=== PATIENT | female | born 1990 | race Caucasian/White ===

== ENCOUNTER 2018-09-04 06:20 | Inpatient (IN) ==
[2018-09-04] MEDS ORDERED: Oxytocin 30 Units/500ml Premix 30 UNITS/500 ML BAG IV.SIG ONE ×2 (07:11→21:11)
[2018-09-04] MEDS ORDERED: Sod Chloride 0.9% Inj 1,000 ML IV.CONT PRN (07:11)
[2018-09-04] MEDS ORDERED: Sodium Chlor 0.9% Inj 500 ML IV.SIG PRN (07:11)
[2018-09-04] MEDS ORDERED: fentaNYL Citrate Inj 100 MCG/2 ML Ampul IV.PUSH PRN (07:11)
[2018-09-04] MEDS ORDERED: Naloxone Inj 0.4 MG/ML Vial IV.PUSH PRN ×2 (07:11→21:00)
[2018-09-04] MEDS ORDERED: Oxytocin 30 Units/500ml Premix 30 UNITS/500 ML BAG IV.CONT PRN (07:13)
[2018-09-04] MEDS ORDERED: Citric Acid/Sodium Citrate Liq 30 ML UDC PO SCH ×2 (07:15→19:45)
--- NOTE | 2018-09-04 07:20 | P.HPOB ---
Patient Name: Vee Raza Date of : 86 Patient Status: Emergency Emergency Provider: Rhoda,Edna Date: 09/04/18 07:13 Initialization Date: 09/04/18 07:13 History of Present Illness Primary Care Physician: Octaviano Sarkar Electrical/Instrument Technician Dr. Maryann Villalobos covering Chief Complaint: I broke my water at 4:47 AM History of Present Illness: 28-year-old at 39+ weeks complaining of spontaneous rupture of membranes. GBS negative Past OB history unremarkable Past CUSTOM DESIGNER denies Past medical history denies Allergies penicillin Weeks Gestation:: 39 Para: 0 : 1 Review of Systems All other systems reviewed negative except as stated in HPI PMFSH - Travel History Recent Travel in the [facility] Within the Last 8 Weeks: No Recent Travel Out of the Country Within the Last 8 Weeks: No Medications and Allergies Allergies Allergy/AdvReac Type Severity Reaction Status Date / Time penicillin G Allergy Flushing Verified 09/04/18 07:17 Exam Narrative: GENERAL: Well-nourished, well-developed patient. SKIN: Warm and dry. HEAD: Normocephalic and atraumatic. EYES: No scleral icterus. No injection or drainage. ENT: No nasal drainage noted. Mucous membranes pink. Airway patent. NECK: Supple, trachea midline. No JVD. CARDIOVASCULAR: Regular rate and rhythm without murmurs, gallops, or rubs. RESPIRATORY: Breath sounds equal bilaterally. No accessory muscle use. BREASTS: Bilateral exam showed no masses , no retractions, no nipple discharge. ABDOMEN/GI: Abdomen soft, non-tender, bowel sounds present, no rebound, no guarding Gravid to 39 weeks size Fundal Height: 39 GENITOURINARY: External Genitalia: intact and normal in appearance BUS glands: Unremarkable Cervix: Soft Dilatation: 1-2 Effacement: 90% Station: 0 Presentation: Vertex Membranes: Ruptured Uterine Contractions: Minimal FHT's: Category: 1 Variability: Present EXTREMITIES: No cyanosis or edema. BACK: Nontender without obvious deformity. No CVA tenderness. NEUROLOGICAL: Awake and alert. Motor and sensory grossly within normal limits. Five out of 5 muscle strength in all muscle groups. Normal speech. Assessment and Plan - Diagnosis (1) Spontaneous rupture of membranes Status: Acute (2) 39 weeks gestation of Code(s): Z3A.39 - 39 weeks gestation of Status: Acute - Plan Admit discussed with Dr. Villalobos plan oxytocin
[2018-09-04 08:11] LABS: Baso % (Auto) 0.3 % (0.0-2.0); Eos # (Auto) 0.1 th/mm3 (0.0-0.4); Eos % (Auto) 1.1 % (0.0-4.0); Hematocrit 37.5 % (35.0-46.0); Hemoglobin 13.6 gm/dL (11.6-15.3); Lymph # (Auto) 2.4 th/mm3 (1.0-4.8); Lymph % (Auto) 21.7 % (9.0-44.0); Mean Corpuscular Hemoglobin 33.6 pg (27.0-34.0); Mean Corpuscular Volume 92.9 fL (80.0-100.0); Mean Platelet Volume 9.2 fL (7.0-11.0); Mono # (Auto) 0.7 th/mm3 (0.0-0.9); Mono % (Auto) 5.8 % (0.0-8.0); Neut % (Auto) 71.1 % (16.0-70.0); Platelet Count 157 th/mm3 (150-450); Red Blood Count 4.04 mil/mm3 (4.00-5.30); Red Cell Distribution Width 13.1 % (11.6-17.2); White Blood Count 11.3 th/mm3 (4.0-11.0)
[2018-09-04 08:17] LABS: Mean Corpuscular HGB Conc 36.1 % (32.0-36.0)
[2018-09-04] MEDS: fentaNYL Citrate Inj 100 MCG/2 ML Ampul IV.PUSH PRN ×2 (10:06→16:47)
[2018-09-04] MEDS ORDERED: fentaNYL 2MCG-Bupiv 0.125% Epi 150 ML EPIDURAL ONE (10:50)
[2018-09-04 10:55] LABS: Bacteria,Urine Moderate /hpf; Bilirubin,Urine Negative (Negative); Clarity,Urine Cloudy (Clear); Color,Urine Yellow (Yellw/Straw); Glucose,Urine (UA) Negative (Negative); Leukocyte Esterase,Urine Small (Negative); Nitrite,Urine Negative (Negative); Specific Gravity,Urine 1.006 (1.002-1.035); Squamous Epithelial Cell,Urine 40 /hpf (0-5)
[2018-09-04 11:14] LABS: Amphetamine Urine With Conf Neg (Neg); Benzodiazepine Urine With Conf Neg (Neg); Cannabinoid Urine With Conf Neg (Neg); Cocaine Urine With Conf Neg (Neg); Opiates Urine With Conf Neg (Neg)
[2018-09-04] MEDS ORDERED: fentaNYL 2MCG-Bupiv 0.125% Epi 150 ML EPIDURAL PRN (12:08)
[2018-09-04] MEDS ORDERED: fentaNYL Citrate Inj 100 MCG/2 ML Ampul EPIDURAL ONE (12:08)
--- NOTE | 2018-09-04 13:29 | P.OBLABOR ---
Subjective Interval history: doing well comfortable on epidural Objective Vital Signs: Vital Signs - 8 hr 09/04/18 07:03 09/04/18 08:04 09/04/18 08:15 Temperature 98.2 F Pulse Rate 86 91 H Respiratory Rate 20 Blood Pressure 140/82 137/80 09/04/18 09:02 09/04/18 09:57 09/04/18 10:01 Temperature Pulse Rate 114 H 87 96 H Respiratory Rate Blood Pressure 118/85 128/103 H 137/84 09/04/18 10:16 09/04/18 10:17 09/04/18 10:31 Temperature 98.5 F Pulse Rate 91 H 92 H Respiratory Rate Blood Pressure 136/81 133/79 09/04/18 11:01 09/04/18 11:22 09/04/18 11:35 Temperature Pulse Rate 89 91 H 100 H Respiratory Rate Blood Pressure 144/71 H 135/73 131/83 09/04/18 11:50 09/04/18 11:55 09/04/18 12:10 Temperature Pulse Rate 92 H 102 H 97 H Respiratory Rate Blood Pressure 116/60 115/72 09/04/18 12:16 09/04/18 12:30 09/04/18 12:31 Temperature 97.4 F L Pulse Rate 89 85 86 Respiratory Rate Blood Pressure 130/70 116/53 L 135/67 09/04/18 13:01 Temperature Pulse Rate 88 Respiratory Rate Blood Pressure 128/77 Objective: Pelvic Exam: Cervix: [-] Dilatation: [-] Effacement: [-] Station: [-] Presentation: [-] Membranes: [intact or ruptured] Uterine Contractions: [-] FHT's: Category: [-] Baseline: [-] Reactive: [-] Variability: [-] Decels: [-] Patient Started Active Labor: Yes Active Labor Start Date: 09/04/18 Active Labor Start Time: 07:00 Artificial Rupture of Membrane: No Assessment and Plan - Diagnosis (1) 39 weeks gestation of Code(s): Z3A.39 - 39 weeks gestation of Status: Acute
[2018-09-04] MEDS ORDERED: Morphine Sulfate PF Inj 5 MG/10 ML Ampul ONE (19:38)
[2018-09-04] MEDS ORDERED: ceFAZolin 2 GM Premix Inj 2 GM/50 ML PIGGYBACK IV.SIG SCH (19:41)
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
[2018-09-04] MEDS ORDERED: Simethicone 80 MG Chew Tablet PO PRN (21:11)
--- NOTE | 2018-09-04 21:15 | P.OBDELI ---
Procedure Note Performed by: Glenn Miguel MD Procedure: Primary Low Transverse Section, Other (cystotomy repair) Indication for Delivery: Other (arrest of descent) Informed Consent Obtained: For anesthesia, For procedure Confirmed Correct: Patient, Procedure, Time-out taken Anesthesia: Epidural Monitoring During Procedure: Blood pressure monitoring Urinary Catheter: Inserted using sterile technique, To dependent drainage Sterile Preparation: Duraprep Position: Supine with wedge to left side - Operative Features Skin Incision: Pfannenstiel Uterine Incision: Low transverse w/knife / blunt ext Membranes Ruptured: Previously Presentation: Occiput anterior Status of Infant: Viable Placenta Delivered: Intact Estimated blood loss (mL): 300
--- NOTE | 2018-09-04 22:17 | MP ---
cc: Glenn Miguel MD,Glenn Yoon MD DATE OF OPERATION: 09/04/2018 PROCEDURE PERFORMED: Primary low transverse section. It also included a cystotomy repair. PREOPERATIVE DIAGNOSIS: Arrest of dilatation at 10 cm, 0 station after 2 hours of pushing. POSTOPERATIVE DIAGNOSIS: Arrest of dilatation at 10 cm, 0 station after 2 hours of pushing, with incidental cystotomy. ESTIMATED BLOOD LOSS: 300 mL. COMPLICATIONS: None. ANESTHESIA: Epidural. FINDINGS: Live infant OP presentation. The patient had a bladder and peritoneum which were significantly scarred secondary to previous laparotomy. PROCEDURE IN DETAIL: After informed consent and discussion about indication for section, the patient was taken to the operating room where she was placed under epidural anesthesia. Once the epidural anesthesia was adequate, and a Bansal catheter was placed and was draining well with blood-tinged urine secondary to 2 hours of pushing, a vertical skin incision was carried sharply through the old scar about midway to the umbilicus. We made a suprapubic elliptical incision around her previous scar and carried that down just above the pubic bone; an elliptical removing an old scar from previous laparotomy. Once the scar was excised, we incised through the subcutaneous tissue with Bovie cautery until we reached the fascia. The fascia was opened with Valerio scissors. We extended the incision upward and downward using sharp dissection secondary to scar tissue. A Sam clamp was placed on the sides. Attempts multiple attempts to enter the peritoneum were difficult. We dissected all the way up to the umbilicus where we entered the peritoneum, although it was adherent to the anterior uterus and was difficult to dissect away. At this point, there was a small cystotomy, which we were not sure that it was a cystotomy. At this time, we knew we entered some cavity with mucosa. This was dissected downward until we could find a window in the lower uterine segment. Once a window was formed, a low transverse uterine incision was then made, carried sharply into the uterine cavity. Clear fluid was noted. The infant was direct OP. The incision was extended laterally using blunt traction upward and downward. A hand was placed in the uterus. The infant's head was brought to the incision and flexed. Using fundal pressure, the 's head delivered. Shoulders were delivered. The remaining portion away with fundal pressure. The remained on the mom's thighs for 45 seconds, crying as we dried the baby. Once the baby was dry, a 45-second delayed cord clamping was obtained. We clamped and cut the cord handed the baby to pediatrics. At this point, we noticed that the Bansal bulb was able to be pulled up to the rent where the mucosa had been opened. It was about a 4 cm rent. The placenta was then delivered. The uterine incision was free of this scarred bladder. We closed the uterine incision in a running locking stitch of 0 chromic suture. Good hemostasis was achieved. Our attention was then turned to the bladder. At this point, I called for Dr. Charly Tompkins the OB hospitalist to assist with the closure of the bladder. We closed it in 2 layers using 3-0 chromic suture. We imbricated the mucosa of the bladder and the muscularis, closing the bladder with a running stitch to close the bladder mucosa. Once the bladder mucosa was completely approximated and both angles were held by a tag, we then oversewed the serosa over this, imbricating this incision and protecting it and taking pressure off that suture line. We carefully closed the serosa back over this defect with 2-0 Vicryl suture in a running stitch. It was completely imbricated. Good closure was noted. Sterile milk was then placed in the bladder. We pushed the sterile milk in and distended the bladder with over 60 mL of sterile milk. The bladder distended well and there was no leakage of any sterile milk from any suture line or from any other rents in the bladder. Satisfied with our closure. The bladder was once again drained, did not drain well, the Bansal bulb was readjusted and it drained better at that point. The defect was in the dome of the bladder at the very apex. This was easily closed, and good closure was noted. The perineum was then closed with 2-0 Vicryl suture. The fascia was closed with 0 Vicryl suture in a running stitch in a vertical fashion without difficulty. At this point, subcutaneous tissue was brought back together. There was about a 1.5 cm area that had been removed at the skin, so the subcutaneous tissue was brought together to take pressure off our 4-0 Monocryl. 4-0 Monocryl was used to close the skin. Steri-Strips were also applied because that skin was put under some pressure. The abdominal binder would also be used. The patient, the skin was closed completely with a 4-0 Monocryl on a Burton needle. Good closure was noted before the Steri-Strips were applied. The patient tolerated the procedure well. Lap and instrument counts were reported as correct. The went to the nursery. The patient was instructed about the cystotomy. Her was also instructed about cystotomy and that would recommend bladder drainage for 2 weeks with a Bansal catheter. The patient tolerated this procedure well. Lap and instrument count was reported as correct. The patient was in stable condition when she was brought to the recovery room to reunite with her infant. MD MARY Serrano/ofelia , 09:23 PM , 09:36 PM
[2018-09-05] MEDS ORDERED: Oxytocin 30 Units/500ml Premix 30 UNITS/500 ML BAG IV.SIG PRN (02:11)
[2018-09-05] MEDS: ceFAZolin Inj 2,000 MG in Sodium Chlor 0.9% Inj 80 ML IV.SIG SCH ×2 (04:03→12:10)
[2018-09-05 05:52] LABS: Baso % (Auto) 0.2 % (0.0-2.0); Hematocrit 33.5 % (35.0-46.0); Hemoglobin 11.7 gm/dL (11.6-15.3); Lymph # (Auto) 1.1 th/mm3 (1.0-4.8); Lymph % (Auto) 5.3 % (9.0-44.0); Mean Corpuscular Hemoglobin 32.8 pg (27.0-34.0); Mean Corpuscular Volume 93.9 fL (80.0-100.0); Mean Platelet Volume 9.1 fL (7.0-11.0); Mono # (Auto) 0.9 th/mm3 (0.0-0.9); Neut # (Auto) 19.3 th/mm3 (1.8-7.7); Neut % (Auto) 90.5 % (16.0-70.0); Platelet Count 145 th/mm3 (150-450); Red Blood Count 3.57 mil/mm3 (4.00-5.30); White Blood Count 21.3 th/mm3 (4.0-11.0)
--- NOTE | 2018-09-05 08:34 | P.PNOB ---
Subjective Post day: 1 Interval history: doing well doing well urine clear, Objective Vital Signs/I&O: Vital Signs 09/04/18 09:02 09/04/18 09:57 09/04/18 10:01 Temperature Pulse Rate 114 H 87 96 H Respiratory Rate Blood Pressure 118/85 128/103 H 137/84 09/04/18 10:16 09/04/18 10:17 09/04/18 10:31 Temperature 98.5 F Pulse Rate 91 H 92 H Respiratory Rate Blood Pressure 136/81 133/79 09/04/18 11:01 09/04/18 11:22 09/04/18 11:35 Temperature Pulse Rate 89 91 H 100 H Respiratory Rate Blood Pressure 144/71 H 135/73 131/83 09/04/18 11:50 09/04/18 11:55 09/04/18 12:10 Temperature Pulse Rate 92 H 102 H 97 H Respiratory Rate Blood Pressure 116/60 115/72 09/04/18 12:16 09/04/18 12:30 09/04/18 12:31 Temperature 97.4 F L Pulse Rate 89 85 86 Respiratory Rate Blood Pressure 130/70 116/53 L 135/67 09/04/18 13:01 09/04/18 13:31 09/04/18 13:46 Temperature Pulse Rate 88 97 H 95 H Respiratory Rate Blood Pressure 128/77 134/78 100/63 09/04/18 14:00 09/04/18 14:15 09/04/18 14:46 Temperature 98.7 F Pulse Rate 97 H 102 H 104 H Respiratory Rate Blood Pressure 124/75 136/80 119/69 09/04/18 15:01 09/04/18 15:28 09/04/18 15:31 Temperature Pulse Rate 111 H 109 H 101 H Respiratory Rate 18 Blood Pressure 140/71 130/73 126/71 09/04/18 16:31 09/04/18 16:58 09/04/18 17:46 Temperature 99.2 F Pulse Rate 103 H 101 H 102 H Respiratory Rate 18 Blood Pressure 142/82 H 133/82 138/74 09/04/18 19:10 09/04/18 19:30 09/04/18 21:13 Temperature 99.4 F 97.8 F Pulse Rate 95 H 91 H 84 Respiratory Rate 16 16 Blood Pressure 102/71 109/55 L 09/04/18 21:39 09/04/18 21:54 09/04/18 22:10 Temperature Pulse Rate 89 89 83 Respiratory Rate 16 16 16 Blood Pressure 103/58 L 116/57 L 130/61 09/04/18 22:30 09/05/18 03:00 Temperature 98.3 F 98.4 F Pulse Rate 84 71 Respiratory Rate 18 18 Blood Pressure 129/67 143/86 H Intake & Output 09/04/18 09/05/18 09/05/18 18:59 06:59 18:59 Intake Total 1000 / 1000 Balance 1000 / 1000 Weight 100.698 kg Intake: IV 1000 / 1000 LR 1000 mL Inj 1,000 ML @ 125 1000 / 1000 mls/hr IV.CONT .Q8H [facility] Rx#: [id number] Other: Weight On Admission 100.698 kg Result Diagrams: 09/05/18 05:34 Objective Remarks: GENERAL: Well-nourished, well-developed patient. ABDOMEN/GI: Abdomen soft, non-tender. Fundus: Firm, non-tender at umbilicus. GENITOURINARY: Light to moderate bleeding. EXTREMITIES: No cyanosis or edema, non-tender, without signs of DVT. Medications and IVs: Active Medications Citric Acid/Sodium Citrate (Sodium Citrate/Citric Acid Liq) 30 ml PO REFINING EQUIPMENT OPERATOR [facility] Stop: 09/08/18 07:14 Citric Acid/Sodium Citrate (Sodium Citrate/Citric Acid Liq) 30 ml PO REFINING EQUIPMENT OPERATOR [facility] Stop: 09/08/18 19:44 Diphenhydramine HCl (Benadryl Inj) 25 mg IV.PUSH Q6H PRN PRN Reason: MILD TO MODERATE ITCHING Stop: 09/05/18 20:59 Diphenhydramine HCl (Benadryl) 50 mg PO Q6H PRN PRN Reason: MILD TO MODERATE ITCHING Stop: 09/05/18 20:59 Diphtheria/Pertussis/Tetanus Vacc (Boostrix Vaccine Inj) 0.5 ml IM .ONCE ONE Stop: 09/05/18 16:01 Ephedrine Sulfate (Ephedrine/Ns Syringe) 10 mg IV.PUSH UNSCH PRN PRN Reason: SEE LABEL COMMENTS Stop: 09/05/18 12:08 Fentanyl Citrate (Fentanyl Inj) 50 mcg IV.PUSH Q1H PRN PRN Reason: Pain Scale 3 - 5 Fentanyl Citrate (Fentanyl Inj) 100 mcg IV.PUSH Q1H PRN PRN Reason: PAIN SCALE 6 TO 10 Last Admin: 09/04/18 16:47 Dose: 100 mcg Lactated Ringer's (Lr 1000 Ml Inj) 1,000 mls @ 3,000 mls/hr IV.SIG UNSCH PRN PRN Reason: compromise or epidural Sodium Chloride (Ns Inj) 500 mls @ 1,000 mls/hr IV.SIG UNSCH PRN PRN Reason: SEE LABEL COMMENTS Sodium Chloride (Ns Inj) 1,000 mls @ 100 mls/hr IV.CONT .Q10H PRN PRN Reason: SEE LABEL COMMENTS Oxytocin (Pitocin 30 Units/Ns 500 Ml Premix) 30 units in 500 mls @ 2 mls/hr IV.CONT TITRATE PRN; Protocol PRN Reason: For induction of labor Last Admin: 09/04/18 08:31 Dose: 2 milliunit/min, 2 mls/hr Fentanyl/Bupivacaine/Sodium Chlor (Fentanyl 2 Mcg-Bupiv 0.125% Epi) 150 mls @ 10 mls/hr EPIDURAL PRN PRN PRN Reason: for Labor Pain Last Admin: 09/04/18 16:49 Dose: 10 mls/hr Cefazolin Sodium/Dextrose (Ancef 2 Gm Premix Inj) 2 gm in 50 mls @ 100 mls/hr IV.SIG REFINING EQUIPMENT OPERATOR [facility] Stop: 09/08/18 19:40 Lactated Ringer's (Lr 1000 Ml Inj) 1,000 mls @ 150 mls/hr IV.CONT .Q6H40M [facility] Cefazolin Sodium 2,000 mg/ (Sodium Chloride) 100 mls @ 200 mls/hr IV.SIG Q8H [facility] Stop: 09/05/18 12:29 Last Admin: 09/05/18 04:03 Dose: 200 mls/hr Lactated Ringer's (Lr 1000 Ml Inj) 1,000 mls @ 100 mls/hr IV.CONT .Q10H [facility] Stop: 09/05/18 22:10 Last Admin: 09/05/18 04:05 Dose: 100 mls/hr Oxytocin (Pitocin 30 Units/Ns 500 Ml Premix) 30 units in 500 mls @ 100 mls/hr IV.SIG PRN PRN PRN Reason: Heavy bleeding Stop: 09/06/18 02:10 Ibuprofen (Motrin) 600 mg PO Q6HR PRN PRN Reason: cramping Ketorolac Tromethamine (Toradol Inj) 30 mg IM Q6H PRN PRN Reason: SEE LABEL COMMENTS Stop: 09/09/18 21:10 Last Admin: 09/05/18 05:26 Dose: 30 mg Lidocaine HCl (Xylocaine 1% Inj) 0.1 ml I-DERMAL PRN PRN PRN Reason: For IV start Stop: 09/07/18 07:10 Lidocaine HCl (Xylocaine 1% Inj) 10 ml INFILTRATN PRN PRN PRN Reason: For episiotomy repair Stop: 09/06/18 07:10 Measles/Mumps/Rubella Vaccine Live (M-M-R Ii Vaccine Inj) 0.5 ml SQ .ONCE ONE Stop: 09/05/18 16:01 Mineral Oil (Muri-Lube Oil) 10 ml TOPICAL PRN PRN PRN Reason: PRN perineal massage Miscellaneous Information (Misc Information) 1 each OTHER UNSCH PRN PRN Reason: SEE LABEL COMMENTS Stop: 09/05/18 12:08 Miscellaneous Information (Misc Information) 1 each OTHER UNSCH PRN PRN Reason: SEE LABEL COMMENTS Stop: 09/05/18 12:08 Miscellaneous Information (Misc Nursing Information) 1 each OTHER UNSCH PRN PRN Reason: SEE LABEL COMMENTS Stop: 09/05/18 20:59 Miscellaneous Information (Misc Nursing Information) 1 each OTHER UNSCH PRN PRN Reason: SEE LABEL COMMENTS Stop: 09/05/18 20:59 Naloxone HCl (Narcan Inj) 0.1 mg IV.PUSH Q2M PRN PRN Reason: for opiate reversal Naloxone HCl (Narcan Inj) 0.4 mg IV.PUSH UNSCH PRN PRN Reason: SEE LABEL COMMENTS Stop: 09/05/18 20:59 Ondansetron HCl (Zofran Inj) 4 mg IV.PUSH Q6H PRN PRN Reason: NAUSEA OR VOMITING Last Admin: 09/05/18 03:08 Dose: 4 mg Oxycodone/Acetaminophen (Percocet 5/325 Mg) 1 tab PO Q4H PRN PRN Reason: PAIN SCALE 3 TO 5 Oxycodone/Acetaminophen (Percocet 5/325 Mg) 2 tab PO Q4H PRN PRN Reason: PAIN SCALE 6 TO 10 Senna/Docusate Sodium (Leyda-Colace) 2 tab PO Q12H PRN PRN Reason: CONSTIPATION Simethicone (Mylicon Chew) 80 mg PO QID PRN PRN Reason: FLATULENCE Sodium Chloride (Ns Flush) 2 ml IV.FLUSH BID [facility] Sodium Chloride (Ns Flush) 2 ml IV.FLUSH PRN PRN PRN Reason: FLUSH AFTER USING IV ACCESS Assessment and Plan - Diagnosis (1) 39 weeks gestation of Code(s): Z3A.39 - 39 weeks gestation of Status: Acute
[2018-09-05] MEDS: Senna/Docusate Sodium 8.6/50 MG Tablet PO PRN ×2 (14:11→22:01)
[2018-09-05] MEDS ORDERED: Measles/Mumps/Rubella Vaccine Inj 0.5 ML Vial SQ ONE (16:00)
[2018-09-05] MEDS ORDERED: Diphtheria/Tetanus/Pertussis Vaccine Inj 0.5 ML Syringe IM ONE (16:00)
[2018-09-05] MEDS: Ibuprofen 600 MG Tablet PO PRN (18:32)
[2018-09-06] MEDS: Ibuprofen 600 MG Tablet PO PRN ×2 (00:32→08:38)
[2018-09-06 09:18] VITALS: BP 119/81; PULSE 103; RESP 16; TEMP 98.9
--- NOTE | 2018-09-06 11:01 | P.PNOB ---
Subjective Post day: 2 Interval history: patient doing well pp. No complaints. She understands about her cystotomy and need for perdue for 2 weeks. Urine remains clear. she has pain managed with ibuprofen and percocet Objective Vital Signs/I&O: Vital Signs 09/05/18 13:00 09/05/18 20:00 09/06/18 08:30 Temperature 98.0 F 98.0 F 98.9 F Pulse Rate 111 H 100 H 103 H Respiratory Rate 16 Blood Pressure 100/56 L 106/69 119/81 Result Diagrams: 09/05/18 05:34 Objective Remarks: GENERAL: Well-nourished, well-developed patient. CARDIOVASCULAR: Regular rate and rhythm without murmurs, gallops, or rubs. RESPIRATORY: Breath sounds equal bilaterally. No accessory muscle use. ABDOMEN/GI: Abdomen soft, non-tender. Fundus: Firm, non-tender at umbilicus. GENITOURINARY: Light to moderate bleeding. EXTREMITIES: No cyanosis or edema, non-tender, without signs of DVT. Medications and IVs: Active Medications Citric Acid/Sodium Citrate (Sodium Citrate/Citric Acid Liq) 30 ml PO COMPUTER SYSTEMS ARCHITECT [facility] Stop: 09/08/18 07:14 Citric Acid/Sodium Citrate (Sodium Citrate/Citric Acid Liq) 30 ml PO COMPUTER SYSTEMS ARCHITECT [facility] Stop: 09/08/18 19:44 Fentanyl Citrate (Fentanyl Inj) 50 mcg IV.PUSH Q1H PRN PRN Reason: Pain Scale 3 - 5 Fentanyl Citrate (Fentanyl Inj) 100 mcg IV.PUSH Q1H PRN PRN Reason: PAIN SCALE 6 TO 10 Last Admin: 09/04/18 16:47 Dose: 100 mcg Lactated Ringer's (Lr 1000 Ml Inj) 1,000 mls @ 3,000 mls/hr IV.SIG UNSCH PRN PRN Reason: compromise or epidural Sodium Chloride (Ns Inj) 500 mls @ 1,000 mls/hr IV.SIG UNSCH PRN PRN Reason: SEE LABEL COMMENTS Sodium Chloride (Ns Inj) 1,000 mls @ 100 mls/hr IV.CONT .Q10H PRN PRN Reason: SEE LABEL COMMENTS Oxytocin (Pitocin 30 Units/Ns 500 Ml Premix) 30 units in 500 mls @ 2 mls/hr IV.CONT TITRATE PRN; Protocol PRN Reason: For induction of labor Last Admin: 09/04/18 08:31 Dose: 2 milliunit/min, 2 mls/hr Fentanyl/Bupivacaine/Sodium Chlor (Fentanyl 2 Mcg-Bupiv 0.125% Epi) 150 mls @ 10 mls/hr EPIDURAL PRN PRN PRN Reason: for Labor Pain Last Admin: 09/04/18 16:49 Dose: 10 mls/hr Cefazolin Sodium/Dextrose (Ancef 2 Gm Premix Inj) 2 gm in 50 mls @ 100 mls/hr IV.SIG COMPUTER SYSTEMS ARCHITECT [facility] Stop: 09/08/18 19:40 Lactated Ringer's (Lr 1000 Ml Inj) 1,000 mls @ 150 mls/hr IV.CONT .Q6H40M [facility] Ibuprofen (Motrin) 600 mg PO Q6HR PRN PRN Reason: cramping Last Admin: 09/06/18 08:38 Dose: 600 mg Lidocaine HCl (Xylocaine 1% Inj) 0.1 ml I-DERMAL PRN PRN PRN Reason: For IV start Stop: 09/07/18 07:10 Mineral Oil (Muri-Lube Oil) 10 ml TOPICAL PRN PRN PRN Reason: PRN perineal massage Naloxone HCl (Narcan Inj) 0.1 mg IV.PUSH Q2M PRN PRN Reason: for opiate reversal Ondansetron HCl (Zofran Inj) 4 mg IV.PUSH Q6H PRN PRN Reason: NAUSEA OR VOMITING Last Admin: 09/05/18 03:08 Dose: 4 mg Oxycodone/Acetaminophen (Percocet 5/325 Mg) 1 tab PO Q4H PRN PRN Reason: PAIN SCALE 3 TO 5 Last Admin: 09/05/18 22:57 Dose: 1 tab Oxycodone/Acetaminophen (Percocet 5/325 Mg) 2 tab PO Q4H PRN PRN Reason: PAIN SCALE 6 TO 10 Last Admin: 09/06/18 08:38 Dose: 2 tab Senna/Docusate Sodium (Leyda-Colace) 2 tab PO Q12H PRN PRN Reason: CONSTIPATION Last Admin: 09/05/18 22:01 Dose: 1 tab Simethicone (Mylicon Chew) 80 mg PO QID PRN PRN Reason: FLATULENCE Sodium Chloride (Ns Flush) 2 ml IV.FLUSH BID [facility] Last Admin: 09/06/18 10:03 Dose: Not Given Sodium Chloride (Ns Flush) 2 ml IV.FLUSH PRN PRN PRN Reason: FLUSH AFTER USING IV ACCESS Assessment and Plan - Diagnosis (1) 39 weeks gestation of Code(s): Z3A.39 - 39 weeks gestation of Status: Acute (2) delivery delivered Code(s): O82 - Encounter for delivery without indication Status: Acute (3) Bladder injury Code(s): S37.20XA - Unspecified injury of bladder, initial encounter Status: Acute - Plan dc home with [facility]due
--- NOTE | 2018-09-06 11:10 | P.DS ---
Date of admission: 09/04/18 07:23 Primary care physician: Kell Primary Care Physician Brief History from admission: Patient came from home with SROM she labored and pushed for 2 hours and had arrest of descent. She underwent CS and had incidental cystotomy and is aware of care DS: Diagnosis - Discharge Diagnosis (1) 39 weeks gestation of Status: Acute (2) delivery delivered Status: Acute (3) Bladder injury Status: Acute DS: Medications - Discharge Medications Prescriptions: oxycodone-acetaminophen 2 tab PO Q4H PRN 3 Days #24 tab PRN Reason: Pain Scale 6 To 10 DS: Summary Hospital Course: doing well pushed for 2 hours and then had CS with LTCS and incidental cystotomy. did well pp day #2 - Time Spent with Patient Total time spent providing and/or coordinating discharge services: Less than 30 minutes Exam Vital signs: Vital Signs 09/05/18 13:00 09/05/18 20:00 09/06/18 08:30 Temperature 98.0 F 98.0 F 98.9 F Pulse Rate 111 H 100 H 103 H Respiratory Rate 20 18 16 Blood Pressure 100/56 L 106/69 119/81 - Constitutional no acute distress - Routine Neck Exam Present: full ROM - Routine Cardiovascular Exam Present: RRR - Routine Abdominal Exam Present: soft, normoactive bowel sounds - Routine Skin Exam Present: intact Results Procedures completed during hospitalization: LTCS and Cystotomy repair Discharge Plan - Discharge Disposition Patient Disposition: 01 Discharge Home - Discharge Condition Condition: Good - Discharge Order Discharge Orders: Discharge Order (Routine); Ordered 09/06/18 Ordered By: Glenn Miguel - Physicians Team Primary Care Provider: Primary Care Kell Baez Attending Provider: Glenn Miguel
== END 2018-09-06 15:54 | disposition home or self-care (01) ==
LOC: HOBED 06:20 → H2E 07:23 → H1EA 22:28
PROVIDERS: ADMIT Obstetrics & Gynecology; ATTEND Obstetrics & Gynecology